=== PATIENT | male | born 1950 | race Caucasian/White ===

== ENCOUNTER 2017-01-15 17:17 | Inpatient (IN) | payer OTHER ==
--- NOTE | 2017-01-15 17:33 | CPEKG ---
Heart Rate: 131 RR Interval: 458 P-R Interval: 164 QRSD Interval: 74 QT Interval: 280 QTC Interval: 414 P [place]: 84 QRS [place]: 49 T Wave [place]: 47 EKG Severity - OTHERWISE NORMAL ECG - EKG Impression: SINUS TACHYCARDIA Electronically Signed By: Maykel Hoffmann 16-Jan-2017 09:05:13
--- NOTE | 2017-01-15 17:34 | EDPHY ---
H & P Stated Complaint: chest pain/sob/fevers Time Seen by Provider: 01/15/17 17:33 - Personal History Current Tetanus/Diphtheria Vaccine: Unsure - Medical/Surgical History Hx Asthma: No Hx Chronic Respiratory Disease: Yes Hx Diabetes: No Hx Cardiac Disease: Yes Hx Renal Disease: No Hx Cirrhosis: No Hx Alcoholism: Yes Hx HIV/AIDS: No Hx Splenectomy or Spleen Trauma: No Other PMH: CAD, emphysema, surgeries hernia, repaired femur fracture - Social History Smoking Status: Former smoker Constitutional: Initial Vital Signs Temperature (C) 36.8 C 01/15/17 17:21 Heart Rate 133 H 01/15/17 17:21 Respiratory Rate 28 H 01/15/17 17:21 Blood Pressure 177/97 H 01/15/17 17:21 O2 Sat (%) 60 L 01/15/17 17:21 O2 Delivery Mode Nasal Cannula O2 (L/minute) 6 Allergies/Adverse Reactions: No Known Allergies Allergy (Verified 01/15/17 17:20) Home Medications: Medication Instructions Recorded Albuterol [Proventil Inhaler HFA 1 - 2 puffs IH DAILY 02/17/15 (*)] Aspirin [Aspirin 81mg (*)] 81 mg PO DAILY 02/17/15 Herbals/Supplements -Info Only 1 ea PO DAILY 02/17/15 Ipratropium [Atrovent Hfa (*)] 1 puffs IH DAILY 02/17/15 Multivitamins [Multivitamin (*)] 1 each PO DAILY 02/17/15 Nitroglycerin [Nitrostat 0.4 mg 0.4 mg SL PRN PRN 02/17/15 (*)] Simvastatin [Zocor] 20 mg PO DAILY 02/17/15 guaiFENesin [Mucinex 600 MG (*)] 1,200 mg PO BID 02/17/15 Lisinopril [Zestril 10 mg (*)] 10 mg PO DAILY #30 tab 02/18/15 Ticagrelor [Brilinta] 90 mg PO BID #60 tablet 02/18/15 amLODIPine BESYLATE [Norvasc 2.5 2.5 mg PO DAILY #30 tab 02/18/15 mg (*)] Medical Decision Making - Diagnostics Imaging: Imaging Impressions Chest X-Ray 01/15/17 17:40 Impression: Diffuse interstitial pneumonitis. Differential diagnosis includes viral infection (influenza?) versus infection in an immunocompromised process such as pneumocystis. ED Course/Re-evaluation: CHIEF COMPLAINT: HISTORY OF PRESENT ILLNESS: must have 4 elements: Location, Quality, Severity , Duration, Timing, Context, Modifying Factors, Associated Signs and Symptoms REVIEW OF SYSTEMS: A 10 point review of systems was performed and is negative with the exception of the elements mentioned in the history of present illness. PHYSICAL EXAM: HR, BP, O2 Sat, RR. Temp noted General Appearance: Alert, well hydrated, appropriate, and non-toxic appearing. Head: Atraumatic without scalp tenderness or obvious injury Eyes: Pupils equal, round, reactive to light and accommodation, EOMI, no trauma , no injection. Ears: Clear bilaterally, no perforation, normal landmarks Nose: Atraumatic, no rhinorrhea, clear. Throat: There is no erythema or exudates, no lesions, normal tonsils, mucus membranes moist. Neck: Supple, 2+ carotid upstroke, nontender, no lymphadenopathy. Respiratory: No retractions, no distress, no wheezes, and no accessory muscle use. Lungs are clear to auscultation bilaterally. Cardiovascular: Regular rate and rhythm, no murmurs, rubs, or gallops. Bilateral carotid, radial, dorsalis pedis, and posterior tibial pulses intact. Good capillary refill all extremities. Gastrointestinal: Abdomen is soft, nontender, non-distended, no masses, no rebound, no guarding, no peritoneal signs. Musculoskeletal: Normal active ROM of all extremities, atraumatic. Neurological: Alert, appropriate, and interactive. The patient has normal DTRs and non-focal cranial nerves, motor, sensory, and cerebellar exam. Skin: No rashes, good turgor, no nodules on palpation. Past medical history: Past surgical history: Family history: Social history: DIAGNOSTICS/PROCEDURES/CRITICAL CARE TIME: DIFFERENTIAL DIAGNOSIS: MEDICAL DECISION MAKIN-year-old male with a history of emphysema presents - Data Points Laboratory Results: Laboratory Results 01/15/17 17:40 01/15/17 01/15/17 01/15/17 17:40 17:40 17:40 WBC 17.09 10^3/uL H 10^3/uL (3.80-9.50) RBC 3.83 10^6/uL L 10^6/uL (4.40-6.38) Hgb 11.5 g/dL L g/dL (13.7-17.5) Hct 35.3 % L % (40.0-51.0) MCV 92.2 fL fL (81.5-99.8) MCH 30.0 pg pg (27.9-34.1) MCHC 32.6 g/dL g/dL (32.4-36.7) RDW 13.6 % % (11.5-15.2) Plt Count 417 10^3/uL H 10^3/uL (150-400) MPV 9.7 fL fL (8.7-11.7) Neut % (Auto) 92.8 % H % (39.3-74.2) Lymph % (Auto) 1.5 % L % (15.0-45.0) [place] % (Auto) 4.7 % % (4.5-13.0) Eos % (Auto) 0.1 % L % (0.6-7.6) Baso % (Auto) 0.2 % L % (0.3-1.7) Nucleat RBC Rel Count 0.0 % % (0.0-0.2) Absolute Neuts (auto) 15.87 10^3/uL H 10^3/uL (1.70-6.50) Absolute Lymphs (auto) 0.25 10^3/uL L 10^3/uL (1.00-3.00) Absolute Monos (auto) 0.80 10^3/uL 10^3/uL (0.30-0.80) Absolute Eos (auto) 0.02 10^3/uL L 10^3/uL (0.03-0.40) Absolute Basos (auto) 0.03 10^3/uL 10^3/uL (0.02-0.10) Absolute Nucleated RBC 0.00 10^3/uL 10^3/uL (0-0.01) Immature Gran % 0.7 % % (0.0-1.1) Immature Gran # 0.12 10^3/uL H 10^3/uL (0.00-0.10) PT 15.3 SEC H SEC (12.0-15.0) INR 1.21 H (0.83-1.16) APTT 38.0 SEC SEC (23.0-38.0) VBG Lactic Acid Sodium Pending Potassium Pending Chloride Pending Carbon Dioxide Pending Anion Gap Pending BUN Pending Creatinine Pending Estimated GFR Pending Glucose Pending Calcium Pending Total Bilirubin Pending Troponin I Pending NT-Pro-B Natriuret Pep Pending 01/15/17 17:40 WBC RBC Hgb Hct MCV MCH MCHC RDW Plt Count MPV Neut % (Auto) Lymph % (Auto) [place] % (Auto) Eos % (Auto) Baso % (Auto) Nucleat RBC Rel Count Absolute Neuts (auto) Absolute Lymphs (auto) Absolute Monos (auto) Absolute Eos (auto) Absolute Basos (auto) Absolute Nucleated RBC Immature Gran % Immature Gran # PT INR APTT VBG Lactic Acid 2.5 mmol/L H mmol/L (0.7-2.1) Sodium Potassium Chloride Carbon Dioxide Anion Gap BUN Creatinine Estimated GFR Glucose Calcium Total Bilirubin Troponin I NT-Pro-B Natriuret Pep Departure - Departure Referrals: Reece Macias DO [Primary Care Provider] - As per Instructions
--- NOTE | 2017-01-15 17:37 | EDPHY ---
H & P Stated Complaint: chest pain/sob/fevers - Personal History Current Tetanus/Diphtheria Vaccine: Unsure - Medical/Surgical History Hx Asthma: No Hx Chronic Respiratory Disease: Yes Hx Diabetes: No Hx Cardiac Disease: Yes Hx Renal Disease: No Hx Cirrhosis: No Hx Alcoholism: Yes Hx HIV/AIDS: No Hx Splenectomy or Spleen Trauma: No Other PMH: CAD, emphysema, surgeries hernia, repaired femur fracture - Social History Smoking Status: Former smoker Constitutional: Initial Vital Signs Temperature (C) 36.8 C 01/15/17 17:21 Heart Rate 133 H 01/15/17 17:21 Respiratory Rate 28 H 01/15/17 17:21 Blood Pressure 177/97 H 01/15/17 17:21 O2 Sat (%) 60 L 01/15/17 17:21 O2 Delivery Mode Nasal Cannula O2 (L/minute) 6 Allergies/Adverse Reactions: No Known Allergies Allergy (Verified 01/15/17 17:20) Home Medications: Medication Instructions Recorded Albuterol [Proventil Inhaler HFA 1 - 2 puffs IH DAILY 02/17/15 (*)] Aspirin [Aspirin 81mg (*)] 81 mg PO DAILY 02/17/15 Herbals/Supplements -Info Only 1 ea PO DAILY 02/17/15 Ipratropium [Atrovent Hfa (*)] 1 puffs IH DAILY 02/17/15 Multivitamins [Multivitamin (*)] 1 each PO DAILY 02/17/15 Nitroglycerin [Nitrostat 0.4 mg 0.4 mg SL PRN PRN 02/17/15 (*)] Simvastatin [Zocor] 20 mg PO DAILY 02/17/15 guaiFENesin [Mucinex 600 MG (*)] 1,200 mg PO BID 02/17/15 Lisinopril [Zestril 10 mg (*)] 10 mg PO DAILY #30 tab 02/18/15 Ticagrelor [Brilinta] 90 mg PO BID #60 tablet 02/18/15 amLODIPine BESYLATE [Norvasc 2.5 2.5 mg PO DAILY #30 tab 02/18/15 mg (*)] Medical Decision Making - Diagnostics Imaging: Imaging Impressions Chest X-Ray 01/15/17 17:40 Impression: Diffuse interstitial pneumonitis. Differential diagnosis includes viral infection (influenza?) versus infection in an immunocompromised process such as pneumocystis. ED Course/Re-evaluation: CHIEF COMPLAINT: Shortness of breath, chest pain. HISTORY OF PRESENT ILLNESS: The patient is a 66-year-old male with a history of emphysema who presents with one week of worsening shortness of breath, fever , and chills. Today his shortness of breath worsened, he developed chest pain, and he experienced multiple bouts of diarrhea. He is usually on 2L of oxygen at home but is on 6L today to remain at normal hypoxic levels. He took 3 rounds of nitroglycerin to no effect. He denies recent antibiotic use, vomiting, or other complaints. REVIEW OF SYSTEMS: A 10 point review of systems was performed and is negative with the exception of the elements mentioned in the history of present illness. PHYSICAL EXAM: HR, BP, O2 Sat, RR. Temp noted General Appearance: Alert, well hydrated, appropriate, and non-toxic appearing. Head: Atraumatic without scalp tenderness or obvious injury Eyes: Pupils equal, round, reactive to light and accommodation, EOMI, no trauma , no injection. Ears: Clear bilaterally, no perforation, normal landmarks Nose: Atraumatic, no rhinorrhea, clear. Throat: There is no erythema or exudates, no lesions, normal tonsils, mucus membranes moist. Neck: Supple, 2+ carotid upstroke, nontender, no lymphadenopathy. Respiratory: No retractions, no wheezes, and no accessory muscle use. Increased respiratory rate. Cyanotic. Cardiovascular: Regular rate and rhythm, no murmurs, rubs, or gallops. Bilateral carotid, radial, dorsalis pedis, and posterior tibial pulses intact. Good capillary refill all extremities. Gastrointestinal: Abdomen is soft, nontender, non-distended, no masses, no rebound, no guarding, no peritoneal signs. Musculoskeletal: Normal active ROM of all extremities, atraumatic. Neurological: Alert, appropriate, and interactive. The patient has normal DTRs and non-focal cranial nerves, motor, sensory, and cerebellar exam. Skin: No rashes, good turgor, no nodules on palpation. Past medical history: Emphysema, CAD. Past surgical history: Femur repair, hernia repair. Family history: Unknown. Social history: . DIAGNOSTICS/PROCEDURES/CRITICAL CARE TIME: The 12 lead EKG was interpreted by myself. See hard copy and/or "tracemaster" electronic copy for interpretation. Sinus tachycardia rate 131. No ischemic changes. Study: PA and Lateral Chest X-ray Indication: Chest pain, shortness of breath. Results: I viewed the images myself on the PACS system. My interpretation of the images is: diffuse pneumonitis. See "imaging" section for radiologist report. DIFFERENTIAL DIAGNOSIS: The differential diagnosis for the patient's shortness of breath and hypoxemia included but was not limited to pneumonia, myocardial infarction, acute mountain sickness, high altitude pulmonary edema, congestive heart failure, and pulmonary embolus. MEDICAL DECISION MAKIN-year-old male with a history of emphysema presents with shortness of breath, chest pain, and diarrhea. He reports worsening shortness of breath over the past week and developed severe diarrhea and chest pain today. On arrival his heart rate is 131 and he requires 6L of oxygen to keep his oxygen saturation normal. He is not febrile. He is not hypotensive. He is usually on 2L. An IV will be established. Labs and blood cultures have been ordered. Chest x-ray and EKG obtained. EKG shows sinus tachycardia with no ischemic changes. WBC elevated at 17.05. Lactic acid elevated at 2.5. X-ray as interpreted by me shows diffuse pneumonitis. The patient meets severe sepsis criteria because he is tachycardic, has a high respiratory rate, WBC elevated, and lactic acid is greater than 2. He does not meet criteria for septic shock. Additional lactic acid lab will be drawn. The patient will be given 2gm IV Cefepime and 750mg IV Levaquin. 125mg IV Solu-Medrol administered. Hospitalist paged. [phone]: Consulted with Dr. Hunter, hospitalist. She accepts admission. - Data Points Laboratory Results: Laboratory Results 01/15/17 17:40 01/15/17 17:40 01/15/17 01/15/17 01/15/17 17:40 17:40 17:40 WBC 17.09 10^3/uL H 10^3/uL (3.80-9.50) RBC 3.83 10^6/uL L 10^6/uL (4.40-6.38) Hgb 11.5 g/dL L g/dL (13.7-17.5) Hct 35.3 % L % (40.0-51.0) MCV 92.2 fL fL (81.5-99.8) MCH 30.0 pg pg (27.9-34.1) MCHC 32.6 g/dL g/dL (32.4-36.7) RDW 13.6 % % (11.5-15.2) Plt Count 417 10^3/uL H 10^3/uL (150-400) MPV 9.7 fL fL (8.7-11.7) Neut % (Auto) 92.8 % H % (39.3-74.2) Lymph % (Auto) 1.5 % L % (15.0-45.0) [place] % (Auto) 4.7 % % (4.5-13.0) Eos % (Auto) 0.1 % L % (0.6-7.6) Baso % (Auto) 0.2 % L % (0.3-1.7) Nucleat RBC Rel Count 0.0 % % (0.0-0.2) Absolute Neuts (auto) 15.87 10^3/uL H 10^3/uL (1.70-6.50) Absolute Lymphs (auto) 0.25 10^3/uL L 10^3/uL (1.00-3.00) Absolute Monos (auto) 0.80 10^3/uL 10^3/uL (0.30-0.80) Absolute Eos (auto) 0.02 10^3/uL L 10^3/uL (0.03-0.40) Absolute Basos (auto) 0.03 10^3/uL 10^3/uL (0.02-0.10) Absolute Nucleated RBC 0.00 10^3/uL 10^3/uL (0-0.01) Immature Gran % 0.7 % % (0.0-1.1) Immature Gran # 0.12 10^3/uL H 10^3/uL (0.00-0.10) PT 15.3 SEC H SEC (12.0-15.0) INR 1.21 H (0.83-1.16) APTT 38.0 SEC SEC (23.0-38.0) VBG Lactic Acid Sodium 132 mEq/L L mEq/L (134-144) Potassium 4.4 mEq/L mEq/L (3.5-5.2) Chloride 92 mEq/L L mEq/L (97-110) Carbon Dioxide 24 mEq/l mEq/l (22-31) Anion Gap 16 mEq/L mEq/L (8-16) BUN 37 mg/dL H mg/dL (7-23) Creatinine 1.3 mg/dL mg/dL (0.7-1.3) Estimated GFR 55 Glucose 186 mg/dL H mg/dL (70-100) Calcium 9.2 mg/dL mg/dL (8.5-10.4) Total Bilirubin 0.9 mg/dL mg/dL (0.1-1.4) Troponin I Pending NT-Pro-B Natriuret Pep Pending 01/15/17 17:40 WBC RBC Hgb Hct MCV MCH MCHC RDW Plt Count MPV Neut % (Auto) Lymph % (Auto) [place] % (Auto) Eos % (Auto) Baso % (Auto) Nucleat RBC Rel Count Absolute Neuts (auto) Absolute Lymphs (auto) Absolute Monos (auto) Absolute Eos (auto) Absolute Basos (auto) Absolute Nucleated RBC Immature Gran % Immature Gran # PT INR APTT VBG Lactic Acid 2.5 mmol/L H mmol/L (0.7-2.1) Sodium Potassium Chloride Carbon Dioxide Anion Gap BUN Creatinine Estimated GFR Glucose Calcium Total Bilirubin Troponin I NT-Pro-B Natriuret Pep Departure - Departure Disposition: [facility] Inpatient Acute Clinical Impression: Pneumonitis, Severe sepsis, Hypoxemia Condition: Fair Referrals: Reece Macias DO [Primary Care Provider] - As per Instructions Report Scribed for: Sheng Wilks Report Scribed by: John Garcia Date of Report: 01/15/17 Time of Report: 18:23
[2017-01-15 18:01] LABS: % IMMATURE GRANULYOCYTES 0.7 % (0.0-1.1); ABSOLUTE IMMATURE GRANULOCYTES 0.12 10^3/uL (0.00-0.10); ADD DIFF? NO; ADD MORPH? NO; ADD SCAN? NO; ATYPICAL LYMPHOCYTE FLAG 20 (0-99); FRAGMENT RBC FLAG 0 (0-99); HEMATOCRIT 35.3 % (40.0-51.0); HEMOGLOBIN 11.5 g/dL (13.7-17.5); LEFT SHIFT FLG 0 (0-99); LIPEMIA HEMOLYSIS FLAG 80 (0-99); MEAN CELL HEMOGLOBIN CONCENTR. 32.6 g/dL (32.4-36.7); MEAN CELL VOLUME 92.2 fL (81.5-99.8); MEAN PLATELET VOLUME 9.7 fL (8.7-11.7); PLATELET CLUMPS FLAG 0 (0-99); PLATELET COUNT 417 10^3/uL (150-400); RED BLOOD CELL COUNT 3.83 10^6/uL (4.40-6.38); RED CELL DISTRIBUTION WIDTH 13.6 % (11.5-15.2)
[2017-01-15 18:13] LABS: INR 1.21 (0.83-1.16); PROTIME(PATIENT) 15.3 SEC (12.0-15.0)
[2017-01-15] MEDS ORDERED: CEFEPIME HCL 2 GM in D5W 100 ML IV ONE (18:20)
[2017-01-15] MEDS ORDERED: NS 1,900 ML IV ONE (18:20)
[2017-01-15 18:21] LABS: ANION GAP 16 mEq/L (8-16); BILIRUBIN,TOTAL 0.9 mg/dL (0.1-1.4); CALCIUM 9.2 mg/dL (8.5-10.4); CARBON DIOXIDE 24 mEq/l (22-31); CHLORIDE 92 mEq/L (97-110); CREATININE 1.3 mg/dL (0.7-1.3); GLOMERULAR FILTRATION RATE 55; GLUCOSE 186 mg/dL (70-100); POTASSIUM 4.4 mEq/L (3.5-5.2); SODIUM 132 mEq/L (134-144)
[2017-01-15] MEDS ORDERED: methylPREDNISolone SOD SUCC 125 MG/2 ML VIAL IVP ONE (18:24)
[2017-01-15 18:31] LABS: TROPONIN I < 0.012 ng/mL (0-0.034)
[2017-01-15 18:56] LABS: LACGHOST ORDER
[2017-01-15] MEDS ORDERED: ONDANSETRON DISINTEGRATING 4 MG TAB PO PRN (19:50)
[2017-01-15] MEDS ORDERED: ONDANSETRON 4 MG/2 ML VIAL IVP PRN (19:50)
[2017-01-15] MEDS ORDERED: ACETAMINOPHEN 325 MG TAB PO PRN (19:50)
[2017-01-15 20:11] LABS: ALBUMIN 3.5 g/dL (3.5-5.0); BILIRUBIN,TOTAL 0.9 mg/dL (0.1-1.4); BILIRUBIN-CONJUGATED 0.6 mg/dL (0.0-0.5); BILIRUBIN-UNCONJUGATED 0.3 mg/dL (0.0-1.1); MAGNESIUM 2.3 mg/dL (1.6-2.3); TOTAL PROTEIN 6.7 g/dL (6.3-8.2)
[2017-01-15] MEDS ORDERED: ALBUTEROL 60 PUFFS/8 GM MDI IH PRN (21:06)
[2017-01-15] MEDS ORDERED: LORazepam 2 MG/ML INJ IVP PRN (21:13)
[2017-01-15] MEDS ORDERED: LORazepam 1 MG TAB PO PRN (21:13)
[2017-01-15] MEDS ORDERED: NS 1,000 ML IV SCH (21:15)
--- NOTE | 2017-01-15 21:44 | GHP ---
[f rep st] HISTORY AND PHYSICAL DATE OF ADMISSION: 01/15/2017 CHIEF COMPLAINT: Fatigue, cough. HISTORY OF PRESENT ILLNESS: Patient is a 66-year-old male with history of alcohol abuse, CAD presenting with fevers, chills and sweats for the last few days. He reports a mild dry cough. He just states he "feels bad." Has had mild increased shortness of breath. No myalgias or headaches. Has had nausea, vomiting and diarrhea the last couple days. No blood in emesis or stool. No abdominal pain, increased fatigue and decreased p.o. intake. Denies dysuria. REVIEW OF SYSTEMS: I completed a 10-point review of systems, negative except as noted in HPI. PAST MEDICAL HISTORY: 1. CAD with history of stent to the RCA. 2. Hypertension. 3. Hyperlipidemia. 4. Chronic hypoxemic respiratory failure on 2 L. 5. CKD, baseline creatinine 1.5. PAST SURGICAL HISTORY: 1. Bilateral inguinal hernia surgeries. 2. Repair of femur fracture. SOCIAL HISTORY: Lives in [facility]. Quit tobacco in 2005 but smoked a pack a day for 30 years. Alcohol: States he drinks a case of beer every 6 weeks, last drink was last week. No illicits. FAMILY HISTORY: Hypertension, [place] dad and brother. MEDICATIONS: Vitamin B12, vitamin D3, herbal supplements, atorvastatin 80 mg daily, aspirin 81 mg daily, albuterol as needed, Norvasc 2.5 daily, Brilinta 90 mg b.i.d., multivitamin, ipratropium. PHYSICAL EXAM: VITAL SIGNS: Temperature 37, blood pressure 114/62, heart rate 120s, respiration 28, 95% on 3 L. GENERAL: Disheveled in no acute distress. HEENT: PERRLA. EOMI. Poor mcc. Dry mucous membranes. CV: Tachy but regular. No murmurs, gallops, rubs. LUNGS: Clear to auscultation bilaterally. ABDOMEN: Soft, nontender, nondistended. Positive bowel sounds. : No suprapubic tenderness. MUSCULOSKELETAL: 5/5 upper and lower extremity strength. NEURO: 2 through 12 intact. PSYCH: Alert and oriented x3. Tangential when asking questions. LABS: Sodium 132, potassium 4.4, chloride 92, carbon dioxide 24, BUN 37, creatinine 1.3, glucose 186, conjugated bilirubin 0.6, phos 2.3. BNP is 484. Troponin less than 0.012. Lactate 2.5, repeat is 1.7. INR is 1.2. PT is 15. WBC 17, hemoglobin 11, hematocrit 35, platelets of 417. Chest x-ray personally reviewed by me. Diffuse interstitial pneumonitis. No overt opacity. EKG personally reviewed by me. EKG sinus tachycardia, probable LVH. ASSESSMENT/PLAN: 1. Leukocytosis: WBC is elevated at 17 with diffuse pneumonitis on chest x- ray. Query aspiration versus viral process such as influenza. Cover for atypical pneumonia with Levquin. Check influenza. Denies other infectious symptoms, afebrile. 2. Coronary artery disease. Continue aspirin, statin and Brilinta. 3. Hyperlipidemia. atorvastatin. 4. Benign hypertension: cont home medications. 5. Acute on chronic hypoxemic respiratory failure: initially requiring 6l oxygen (2L at baseline). No evidence of exacerbation. Query viral infection. Continue with home inhalers. 6. Hypovolemic hyponatremia: due to dehydration. IVFs 7. Lactic acidosis: starvation ketosis vs alcohol. Resolved with IV fluids. 8. Hypophosphatemia: replete 9. Etoh abuse: CIWA 10. Diet: Regular. 11. Deep venous thrombosis prophylaxis. Lovenox. Disposition: Patient warrants observation admission given leukocytosis concern for viral versus a bacterial pneumonia. /[id number]/MODL MTDD
[2017-01-15] MEDS: ATORVASTATIN CALCIUM 40 MG TAB PO SCH (21:55)
[2017-01-16 05:23] LABS: % IMMATURE GRANULYOCYTES 0.6 % (0.0-1.1); ABSOLUTE IMMATURE GRANULOCYTES 0.04 10^3/uL (0.00-0.10); ADD DIFF? NO; ADD MORPH? NO; ADD SCAN? NO; ATYPICAL LYMPHOCYTE FLAG 40 (0-99); FRAGMENT RBC FLAG 0 (0-99); HEMATOCRIT 30.5 % (40.0-51.0); HEMOGLOBIN 10.2 g/dL (13.7-17.5); LEFT SHIFT FLG 0 (0-99); LIPEMIA HEMOLYSIS FLAG 80 (0-99); MEAN CELL HEMOGLOBIN 30.4 pg (27.9-34.1); MEAN CELL HEMOGLOBIN CONCENTR. 33.4 g/dL (32.4-36.7); MEAN CELL VOLUME 90.8 fL (81.5-99.8); MEAN PLATELET VOLUME 9.5 fL (8.7-11.7); PLATELET CLUMPS FLAG 20 (0-99); PLATELET COUNT 230 10^3/uL (150-400); RED BLOOD CELL COUNT 3.36 10^6/uL (4.40-6.38); RED CELL DISTRIBUTION WIDTH 13.4 % (11.5-15.2)
[2017-01-16 05:35] LABS: ANION GAP 7 mEq/L (8-16); CALCIUM 7.8 mg/dL (8.5-10.4); CARBON DIOXIDE 25 mEq/l (22-31); CHLORIDE 106 mEq/L (97-110); GLOMERULAR FILTRATION RATE > 60; GLUCOSE 149 mg/dL (70-100); MAGNESIUM 2.2 mg/dL (1.6-2.3); POTASSIUM 4.5 mEq/L (3.5-5.2); SODIUM 138 mEq/L (134-144)
[2017-01-16 06:19] LABS: % IMMATURE GRANULYOCYTES 0.6 % (0.0-1.1); ABSOLUTE IMMATURE GRANULOCYTES 0.05 10^3/uL (0.00-0.10); ADD DIFF? NO; ADD MORPH? NO; ADD SCAN? NO; ATYPICAL LYMPHOCYTE FLAG 50 (0-99); FRAGMENT RBC FLAG 0 (0-99); HEMATOCRIT 25.9 % (40.0-51.0); HEMOGLOBIN 8.6 g/dL (13.7-17.5); LEFT SHIFT FLG 0 (0-99); LIPEMIA HEMOLYSIS FLAG 80 (0-99); MEAN CELL HEMOGLOBIN 30.4 pg (27.9-34.1); MEAN CELL HEMOGLOBIN CONCENTR. 33.2 g/dL (32.4-36.7); MEAN CELL VOLUME 91.5 fL (81.5-99.8); MEAN PLATELET VOLUME 9.2 fL (8.7-11.7); PLATELET CLUMPS FLAG 0 (0-99); PLATELET COUNT 265 10^3/uL (150-400); RED BLOOD CELL COUNT 2.83 10^6/uL (4.40-6.38); RED CELL DISTRIBUTION WIDTH 13.4 % (11.5-15.2)
[2017-01-16] MEDS ORDERED: Herbals/Supplements -Info Only PO SCH (09:00)
[2017-01-16] MEDS ORDERED: IPRATROPIUM HFA INHALER IH SCH (09:00)
[2017-01-16] MEDS: ENOXAPARIN 40 MG/0.4 ML SYR SC SCH (09:05)
[2017-01-16] MEDS: THIAMINE HCL 100 MG TAB PO SCH (09:06)
[2017-01-16] MEDS: MULTIVITAMINS 1 EACH TAB PO SCH (09:06)
[2017-01-16] MEDS: CYANO/VITAMIN B12 1000 MCG TAB PO SCH (09:06)
[2017-01-16] MEDS: CHOLECALCIFEROL VIT D3 1,000 UNITS TAB PO SCH (09:06)
[2017-01-16] MEDS: TICAGRELOR 90 MG TAB PO SCH ×2 (09:06→19:54)
[2017-01-16] MEDS: ASPIRIN 81 MG CHEWABLE TAB PO SCH (09:06)
[2017-01-16] MEDS: POTASSIUM/SODIUM PHOSPHATE 1 PKT PO SCH ×4 (09:14→21:35)
[2017-01-16] MEDS: IPRATROPIUM/ALBUTEROL 3 ML DEYVIAL IH SCH ×3 (10:46→21:41)
[2017-01-16] MEDS ORDERED: ALBUTEROL 60 PUFFS/8 GM MDI IH PRN ×2 (11:15→11:17)
[2017-01-16] MEDS: amLODIPine BESYLATE 5 MG TAB PO SCH (12:05)
--- NOTE | 2017-01-16 13:26 | GCON ---
[f rep st] CONSULTATION PULMONARY CONSULTATION. DATE OF CONSULTATION: 01/16/2017 REASON FOR CONSULTATION: Shortness of breath, cough. HISTORY: The patient is a 66-year-old gentleman, with severe underlying chronic obstructive pulmona ry disease and emphysema. He has been on oxygen at home over the last year, which apparently he wea rs at 4 L. He is on inhaled therapies and nebulized treatments. Over the last 2 months or so he fe els that has had increasing cough, congestion, and shortness of breath. This has been a gradual pro cess. He has been coughing up a small amount of sputum, clear to yellow. He denies known fevers. Over the last several days his increasing pulmonary symptoms have been accompanied by increased naus ea with some vomiting, as well as diarrhea. He was admitted last night. He was given Solu-Medrol i n the emergency department, as well as intravenous fluids. He has remained afebrile. He is being t reated with antibiotics, including cefepime and Levaquin. He feels better significantly, compared t o when he came in. PAST MEDICAL HISTORY: Other medical problems include coronary artery disease with previous stenting . He has been followed at [facility]. There is a history of systemic hypertension, hyperlipidem ia, and chronic renal insufficiency. PAST SURGICAL HISTORY: Herniorrhaphy, femur fracture. SOCIAL HISTORY: The patient lives alone in [place]. He smoked cigarettes for many years, having quit 11 years ago. He was a pack a day smoker for approximately 40 years. He drinks beer, but not excessively. FAMILY HISTORY: Hypertension and coronary artery disease. REVIEW OF SYSTEMS: He denies chest pain. He denies lower extremity edema or previous thromboemboli c disease. He has seen a biofuels operations manager in the distant past, probably in [facility]. His primary care physician is in [place]. He was last seen there in November for increasing respiratory symp toms, and placed on doxycycline and prednisone at that time, with some improvement. He was placed o n oxygen 1 year ago. He uses DuoNeb at home, generally two times a day. He has Atrovent, which he is not currently using, and albuterol which he uses occasionally. He has Advair, but does not keep this up to date secondary to its unaffordable cost for him. He has been on other inhalers in the pa st including Spiriva, which were expensive for him, and did not seem to make much of a difference. PHYSICAL EXAMINATION: GENERAL: Reveals a pleasant gentleman who is somewhat dyspneic at rest. He has mild use of accessary muscles. Oxygen is in place at 3 L. VITAL SIGNS: Blood pressure is appr oximately 120/65, heart rate 95 with sinus rhythm on the monitor, respiratory rate is 22. He is afe brile. NECK/HEENT: Unremarkable for lymphadenopathy or thyromegaly. There is no jugular venous di stention. CHEST: Reveals decreased breath sounds bilaterally with rales on the right side, not the left. Expiratory phase is prolonged. There are scattered expiratory wheezes. With cough there is central congestion, without shu rhonchi. HEART: Tones are distant, the rhythm is regular. P2 a ppears to be increased. There is no gallop. There is a soft systolic murmur. ABDOMEN: Soft and n ontender. Bowel sounds are present. EXTREMITIES: Unremarkable for edema, cords, or tenderness. N EUROLOGIC: Examination is grossly intact. He moves all extremities equally and reports normal sens ation. Cognition is intact. He is a reasonable historian. DATABASE: Chest x-ray shows hyperinflation with interstitial infiltrates, right more so than the le ft. Emphysema is likely present. The heart size is small. The diaphragms appear somewhat flattene d. Laboratory: White blood cell count is 7800, down from 17,000 on admission yesterday. Hematocrit is 25.9, down from 35. Platelets are normal. PT/PTT was normal on admission. Venous lactate was 2.5 on admission, with a repeat of 1.7 after fluids. Basic metabolic panel is remarkable for a mildly elevated BUN at 32, down from 37. Creatinine this morning is 1.0, down from 1.3. Sodium is 138, wi th a potassium of 4.5. CO2 is 25. Glucose is elevated at 149, magnesium and phosphorus are within normal limits. Liver function studies, troponin and BNP were all within normal limits on admission. DFA for influenza was negative. ASSESSMENT: 1. Acute respiratory failure secondary to chronic obstructive pulmonary disease exacerbation, and a typical pneumonia. 2. Chronic obstructive pulmonary disease exacerbation. The patient has what appears to be severe u nderlying chronic obstructive pulmonary disease and emphysema. He is on chronic oxygen at home, and has been on steroids with exacerbations previously. He does use inhaled therapies, but has some di fficulty with these as described above. Once better, nebulized treatments as an outpatient probably will be best. Inhaled steroids can be reevaluated as an outpatient. For now, DuoNeb will be added to his regimen and steroids will be continued. 3. Atypical pulmonary infiltrates, consistent with possible pneumonia versus pneumonitis. The giorgio ent did vomit, but he denies obvious aspiration. An atypical infection secondary to viral organisms , possibly mycoplasma, etceteras, is possible. Serologies will be obtained. Antibiotics will be co ntinued. 4. History of coronary artery disease, without evidence of any acute issues at this time. 5. History of systemic hypertension, hyperlipidemia, etceteras. PLAN AND RECOMMENDATIONS: The patient will be kept in the hospital for now, and treatment will be c ontinued. Please see the recommendations above. DuoNeb will be added to his regimen routinely 4 ti mes daily, and steroids given, initially Solu-Medrol 60 mg q.12 hours. Spirometry will be obtained as he improves. Current antibiotics will be continued. Respiratory viral panel will be obtained, a long with serologies for mycoplasma and urine antigens for Legionella and pneumococcus. Further plans and recommendations will be made based on his progress over the next 12 to 24 hours. /[id number]/MODL
[2017-01-16 14:43] LABS: BASE EXCESS -1.1 mEq/L (-2.5-2.5); BICARBONATE 23 mEq/L (22-26); MEASURED OXYGEN SATURATION 96 % (92-95); PCO2 37 mmHg (34-38); PO2 86 mmHg (65-75); TCO2 24 mEq/L (23-27)
--- NOTE | 2017-01-16 16:07 | HOSPPROG ---
Hospitalist Progress Note Assessment/Plan: * Acute on chronic respiratory failure - improved -6L - now back to 2L baseline * Pneumonia - atypical -levaquin * COPD exacerbation -steroids, nebs * CAD/stent RCA -Brilinta Objective: Vital Signs Temp Pulse Resp BP Pulse Ox 36.6 C 94 20 92/72 L 94 01/16/17 12:00 01/16/17 15:40 01/16/17 15:40 01/16/17 15:40 01/16/17 15:40 Laboratory Results 01/16/17 06:10 01/16/17 05:15 01/15/17 01/16/17 01/17/17 05:59 05:59 05:59 Intake Total 2843 Output Total 400 525 Balance 2443 -525 PT 15.3 SEC (12.0-15.0) H 01/15/17 17:40 INR 1.21 (0.83-1.16) H 01/15/17 17:40 d/w Dr. Sam Foote - suspects atypical pulmonary infection CXR viewed, my personal interpretation is - bilateral diffuse infiltrates - Physical Exam Constitutional: no apparent distress, appears nourished, not in pain Cardiovascular: regular rate and rhythym, no murmur, rub, or gallop Respiratory: no respiratory distress, no rales or rhonchi, clear to auscultation Gastrointestinal: normoactive bowel sounds, soft, non-tender abdomen, no palpable masses Skin: no rashes or abrasions, no fluctuance, no induration Neurologic: AAOx3, sensation intact bilaterally Psychiatric: interacting appropriately, not anxious, not encephalopathic, thought process linear ICD10 Worksheet Patient Problems: Problems Problem Status Onset Hypoxemia Acute Pneumonitis Acute Severe sepsis Acute
[2017-01-16] MEDS: methylPREDNISolone SOD SUCC 125 MG/2 ML VIAL IVP SCH (19:54)
[2017-01-16] MEDS: ATORVASTATIN CALCIUM 40 MG TAB PO SCH (19:54)
[2017-01-17 05:16] LABS: % IMMATURE GRANULYOCYTES 0.9 % (0.0-1.1); ABSOLUTE IMMATURE GRANULOCYTES 0.14 10^3/uL (0.00-0.10); ADD DIFF? NO; ADD MORPH? NO; ADD SCAN? NO; ATYPICAL LYMPHOCYTE FLAG 40 (0-99); FRAGMENT RBC FLAG 0 (0-99); HEMATOCRIT 28.2 % (40.0-51.0); HEMOGLOBIN 9.1 g/dL (13.7-17.5); LEFT SHIFT FLG 10 (0-99); LIPEMIA HEMOLYSIS FLAG 80 (0-99); MEAN CELL HEMOGLOBIN 29.5 pg (27.9-34.1); MEAN CELL HEMOGLOBIN CONCENTR. 32.3 g/dL (32.4-36.7); MEAN CELL VOLUME 91.6 fL (81.5-99.8); MEAN PLATELET VOLUME 9.6 fL (8.7-11.7); PLATELET CLUMPS FLAG 10 (0-99); PLATELET COUNT 343 10^3/uL (150-400); RED BLOOD CELL COUNT 3.08 10^6/uL (4.40-6.38); RED CELL DISTRIBUTION WIDTH 13.3 % (11.5-15.2)
[2017-01-17 05:27] LABS: ANION GAP 10 mEq/L (8-16); CALCIUM 8.6 mg/dL (8.5-10.4); CARBON DIOXIDE 23 mEq/l (22-31); CHLORIDE 107 mEq/L (97-110); CREATININE 0.9 mg/dL (0.7-1.3); GLOMERULAR FILTRATION RATE > 60; GLUCOSE 154 mg/dL (70-100); MAGNESIUM 1.9 mg/dL (1.6-2.3); POTASSIUM 4.2 mEq/L (3.5-5.2); SODIUM 140 mEq/L (134-144)
[2017-01-17] MEDS: IPRATROPIUM/ALBUTEROL 3 ML DEYVIAL IH SCH ×4 (06:12→20:06)
[2017-01-17] MEDS: methylPREDNISolone SOD SUCC 125 MG/2 ML VIAL IVP SCH ×2 (09:14→20:49)
[2017-01-17] MEDS: THIAMINE HCL 100 MG TAB PO SCH (09:15)
[2017-01-17] MEDS: POTASSIUM/SODIUM PHOSPHATE 1 PKT PO SCH ×4 (09:15→21:29)
[2017-01-17] MEDS: ASPIRIN 81 MG CHEWABLE TAB PO SCH (09:15)
[2017-01-17] MEDS: CYANO/VITAMIN B12 1000 MCG TAB PO SCH (09:15)
[2017-01-17] MEDS: MULTIVITAMINS 1 EACH TAB PO SCH (09:15)
[2017-01-17] MEDS: CHOLECALCIFEROL VIT D3 1,000 UNITS TAB PO SCH (09:15)
[2017-01-17] MEDS: ENOXAPARIN 40 MG/0.4 ML SYR SC SCH (09:16)
[2017-01-17] MEDS: amLODIPine BESYLATE 5 MG TAB PO SCH (09:16)
[2017-01-17] MEDS: TICAGRELOR 90 MG TAB PO SCH ×2 (09:16→20:46)
[2017-01-17] MEDS: guaiFENesin 600 MG TAB.ER PO SCH ×2 (09:52→20:46)
--- NOTE | 2017-01-17 12:21 | SOAPPROG ---
SOAP Progress Note Assessment/Plan: Assessment: Severe underlying COPD/emphysema. This is associated with hypoxemia. He is not a CO2 retainer. COPD exacerbation secondary to presumed bronchopneumonia. On antibiotics, bronchodilators, steroids. Atypical pneumonia by x-ray. Alternative diagnoses need to be considered including the development of an interstitial process, lymphangitic spread of carcinoma, etc. History of coronary artery disease/stents, hypertension, hyperlipidemia. Stable. DVT prophylaxis: Enoxaparin GI prophylaxis: The eating. Plan: Continue treatment with antibiotics, bronchodilator therapy and steroids will be continued. His usual medications will be maintained. He will continue to work with PT/OT. Increase mobilization as tolerated. A noncontrast CT scan of the chest will be obtained questioning alternative diagnoses to atypical pneumonia. Subjective: Doing okay. Feels better, less short of breath compared to admission but about the same as yesterday. Is able to cough, bringing up some white to yellow mucus. Objective: Vital Signs Temp Pulse Resp BP Pulse Ox 37.0 C 80 20 131/60 H 90 L 01/17/17 08:00 01/17/17 08:00 01/17/17 08:00 01/17/17 08:00 01/17/17 08:00 Laboratory Results 01/17/17 04:50 01/17/17 04:50 01/16/17 01/17/17 01/18/17 05:59 05:59 05:59 Intake Total 2514 Output Total 950 Balance 1564 PT 15.3 SEC (12.0-15.0) H 01/15/17 17:40 INR 1.21 (0.83-1.16) H 01/15/17 17:40 Respiratory viral panel negative. Flu negative by PCR, mycoplasma negative. CXR: Hyperinflation remains present with bilateral interstitial infiltrates, right greater than left. No significant change. CT scan of the chest from 2010 reviewed: No significant interstitial disease at that time, only very significant emphysema. Laboratory Tests 01/16/17 01/16/17 01/16/17 13:30 13:35 14:33 pCO2 37 pO2 86 H ABG pH 7.40 Total O2 Concentration 3.0 Influenza A & B (PCR) NEGATIVE FOR FLU Mycoplasma pneumon IgM NEGATIVE Physical Exam - Physical Exam General Appearance: alert, no apparent distress, thin EENT: PERRL/EOMI, other (Nasal cannula at 6 L) Neck: No lymphadenopathy (R), No lymphadenopathy (L) Respiratory: decreased breath sounds, rales (More prominent on the right than the left), wheezing (Few wheezes present), prolonged expiration, No rhonchi (No rhonchi, some central congestion with cough) Cardiac/Chest: regular rate, rhythm, other (Distant heart tones. Increased P2, soft systolic murmur. No obvious gallop) Abdomen: normal bowel sounds, non-tender, soft Skin: normal color, warm/dry Lymphatic: no adenopathy Extremities: pedal edema (Trace +) Neuro/Psych: no motor/sensory deficits, No cognition abnormalities ICD10 Worksheet Patient Problems: Problems Problem Status Onset Transitional Care Acute Pneumonitis Acute Severe sepsis Acute Hypoxemia Acute
--- NOTE | 2017-01-17 14:27 | HOSPPROG ---
Hospitalist Progress Note Assessment/Plan: * Acute on chronic respiratory failure - improved -6L - now back to 2L baseline * Pneumonia - atypical -levaquin -d/w Dr. Foote - concern for possible ILD - check CT chest today * COPD exacerbation -steroids, nebs * CAD/stent RCA -Brilinta Subjective: feeling better Objective: Vital Signs Temp Pulse Resp BP Pulse Ox 36.4 C 75 11 L 163/98 H 93 01/17/17 12:40 01/17/17 14:14 01/17/17 14:14 01/17/17 14:14 01/17/17 14:14 Laboratory Results 01/17/17 04:50 01/17/17 04:50 01/16/17 01/17/17 01/18/17 05:59 05:59 05:59 Intake Total 2514 Output Total 950 Balance 1564 PT 15.3 SEC (12.0-15.0) H 01/15/17 17:40 INR 1.21 (0.83-1.16) H 01/15/17 17:40 CXR viewed, my personal interpretation is - interstitial infiltrate unchanged - Physical Exam Constitutional: no apparent distress, appears nourished, not in pain Cardiovascular: regular rate and rhythym, no murmur, rub, or gallop Respiratory: no respiratory distress, no rales or rhonchi, clear to auscultation Gastrointestinal: normoactive bowel sounds, soft, non-tender abdomen, no palpable masses Skin: no rashes or abrasions, no fluctuance, no induration Neurologic: AAOx3, sensation intact bilaterally Psychiatric: interacting appropriately, not anxious, not encephalopathic, thought process linear ICD10 Worksheet Patient Problems: Problems Problem Status Onset Chronic Disease Mgmt/Transitional Care Acute Hypoxemia Acute Pneumonitis Acute Severe sepsis Acute Transitional Care Acute
[2017-01-17] MEDS: ATORVASTATIN CALCIUM 40 MG TAB PO SCH (20:46)
--- NOTE | 2017-01-17 21:21 | CPEKG ---
Heart Rate: 125 RR Interval: 480 P-R Interval: 140 QRSD Interval: 74 QT Interval: 304 QTC Interval: 439 P [place]: 83 QRS [place]: 61 T Wave [place]: 32 EKG Severity - OTHERWISE NORMAL ECG - EKG Impression: SINUS TACHYCARDIA Electronically Signed By: Maykel Hoffmann 18-Jan-2017 21:18:11
[2017-01-17 21:55] LABS: POTASSIUM 3.8 mEq/L (3.5-5.2)
[2017-01-17 22:08] LABS: TROPONIN I < 0.012 ng/mL (0-0.034)
[2017-01-17 22:17] LABS: CREATINE KINASE-MB FRACTION 6.34 ng/mL (0-3.19)
[2017-01-17 22:25] LABS: CK-MB INTERPRETATION POSITIVE (NEGATIVE)
[2017-01-18] MEDS ORDERED: POLYETHYLENE GLYCOL 3350 17 GM PKT PO PRN (00:34)
[2017-01-18] MEDS ORDERED: LACTULOSE 20 GM/30 ML UDCUP PO PRN (00:34)
[2017-01-18] MEDS ORDERED: MAGNESIUM HYDROXIDE 30 ML UDCUP PO PRN (00:34)
[2017-01-18] MEDS ORDERED: BISACODYL 10 MG SUPP PR PRN (00:34)
[2017-01-18 04:27] LABS: % IMMATURE GRANULYOCYTES 0.9 % (0.0-1.1); ADD DIFF? NO; ADD MORPH? NO; ADD SCAN? NO; ATYPICAL LYMPHOCYTE FLAG 40 (0-99); FRAGMENT RBC FLAG 0 (0-99); HEMATOCRIT 27.6 % (40.0-51.0); HEMOGLOBIN 8.9 g/dL (13.7-17.5); LEFT SHIFT FLG 0 (0-99); LIPEMIA HEMOLYSIS FLAG 80 (0-99); MEAN CELL HEMOGLOBIN CONCENTR. 32.2 g/dL (32.4-36.7); MEAN CELL VOLUME 92.9 fL (81.5-99.8); MEAN PLATELET VOLUME 9.7 fL (8.7-11.7); PLATELET CLUMPS FLAG 0 (0-99); PLATELET COUNT 330 10^3/uL (150-400); RED BLOOD CELL COUNT 2.97 10^6/uL (4.40-6.38); RED CELL DISTRIBUTION WIDTH 13.8 % (11.5-15.2)
[2017-01-18 04:34] LABS: MAGNESIUM 1.9 mg/dL (1.6-2.3)
[2017-01-18] MEDS: IPRATROPIUM/ALBUTEROL 3 ML DEYVIAL IH SCH ×4 (06:02→22:40)
[2017-01-18] MEDS ORDERED: SENNOSIDES/DOCUSATE SODIUM TAB PO SCH (09:00)
[2017-01-18] MEDS: guaiFENesin/CODEINE PHOS 10 ML UDCUP PO PRN (09:05)
[2017-01-18] MEDS: MULTIVITAMINS 1 EACH TAB PO SCH (10:57)
[2017-01-18] MEDS: predniSONE 20 MG TAB PO SCH (10:57)
[2017-01-18] MEDS: guaiFENesin 600 MG TAB.ER PO SCH ×2 (10:58→20:23)
[2017-01-18] MEDS: THIAMINE HCL 100 MG TAB PO SCH (10:58)
[2017-01-18] MEDS: amLODIPine BESYLATE 5 MG TAB PO SCH (10:58)
[2017-01-18] MEDS: CHOLECALCIFEROL VIT D3 1,000 UNITS TAB PO SCH (10:58)
[2017-01-18] MEDS: CYANO/VITAMIN B12 1000 MCG TAB PO SCH (10:58)
[2017-01-18] MEDS: ASPIRIN 81 MG CHEWABLE TAB PO SCH (10:59)
[2017-01-18] MEDS: POTASSIUM/SODIUM PHOSPHATE 1 PKT PO SCH ×2 (10:59→14:57)
[2017-01-18] MEDS: TICAGRELOR 90 MG TAB PO SCH ×2 (10:59→20:24)
[2017-01-18] MEDS: ENOXAPARIN 40 MG/0.4 ML SYR SC SCH (11:01)
--- NOTE | 2017-01-18 14:30 | HOSPPROG ---
Hospitalist Progress Note Assessment/Plan: * Acute on chronic respiratory failure - improved -6L - now back to 2L baseline * Pneumonia - atypical -Levaquin -CT chest - possible ILD - await Dr. Foote input * COPD exacerbation -steroids, nebs * CAD/stent RCA -Brilinta Subjective: Feels like congestion is worse, coughing up clear sputum Objective: Vital Signs Temp Pulse Resp BP Pulse Ox 36.6 C 92 16 134/70 H 93 01/18/17 12:39 01/18/17 12:54 01/18/17 12:54 01/18/17 12:39 01/18/17 12:54 Laboratory Results 01/18/17 03:45 01/17/17 21:40 01/17/17 01/18/17 01/19/17 05:59 05:59 05:59 Intake Total 2514 500 240 Output Total 950 200 600 Balance 1564 300 -360 PT 15.3 SEC (12.0-15.0) H 01/15/17 17:40 INR 1.21 (0.83-1.16) H 01/15/17 17:40 CT chest - most likely interstitial PNA, lymphangitic spread unlikely EKG viewed, my personal interpretation is - sinus tachycardia - Physical Exam Constitutional: no apparent distress, appears nourished, not in pain Cardiovascular: regular rate and rhythym, no murmur, rub, or gallop Respiratory: reduced air movement, expiratory wheeze, No respiratory distress, No rhonchi Gastrointestinal: normoactive bowel sounds, soft, non-tender abdomen, no palpable masses Skin: no rashes or abrasions, no fluctuance, no induration Neurologic: AAOx3, sensation intact bilaterally Psychiatric: interacting appropriately, not anxious, not encephalopathic, thought process linear ICD10 Worksheet Patient Problems: Problems Problem Status Onset Chronic Disease Mgmt/Transitional Care Acute Hypoxemia Acute Pneumonitis Acute Severe sepsis Acute Transitional Care Acute
--- NOTE | 2017-01-18 17:05 | SOAPPROG ---
SOAP Progress Note Assessment/Plan: Assessment: Severe underlying COPD/emphysema. This is associated with chronic hypoxemia. He is not a CO2 retainer. Medical regimen on admission may not have been optimal. COPD exacerbation secondary to presumed atypical bronchopneumonia. On antibiotics, bronchodilators, steroids. Atypical pneumonia by x-ray. Alternative diagnoses need to be considered including the development of an interstitial process, lymphangitic spread of carcinoma, etc. CT scan yesterday most suggestive of an acute infectious pneumonitis however these alternative diagnoses are not completely excluded. No further workup will be done here. He will need outpatient follow-up with a repeat CT scan in approximately 3 months. If significant changes persist then bronchoscopy would be needed. History of coronary artery disease/stents, hypertension, hyperlipidemia. Stable. DVT prophylaxis: Enoxaparin GI prophylaxis: eating. Plan: Continued treatment with antibiotics, bronchodilator therapy and steroids will be continued. His usual medications will be maintained. He will continue to work with PT/OT. Increase ambulation as tolerated. Disposition: I anticipate he may be able to go home in the next 1-3 days depending on his progress. He will need home care. I do not believe he will need a SNF at this time. Subjective: Feels better overall. Some increased congestion and mucus today. Not yet back to baseline. Denies pain. Objective: Vital Signs Temp Pulse Resp BP Pulse Ox 36.5 C 94 20 132/69 H 94 01/18/17 15:41 01/18/17 16:40 01/18/17 16:40 01/18/17 15:41 01/18/17 16:40 Laboratory Results 01/18/17 03:45 01/17/17 21:40 01/17/17 01/18/17 01/19/17 05:59 05:59 05:59 Intake Total 2514 500 740 Output Total 950 200 600 Balance 1564 300 140 PT 15.3 SEC (12.0-15.0) H 01/15/17 17:40 INR 1.21 (0.83-1.16) H 01/15/17 17:40 Laboratory Tests 01/16/17 13:50 Urine Legionella Ag Negative Ur Strep pneumoniae Ag Negative Physical Exam - Physical Exam General Appearance: alert, no apparent distress EENT: other (Nasal cannula at 2.5 L) Neck: normal inspection (No JVD), No lymphadenopathy (R), No lymphadenopathy (L) Respiratory: decreased breath sounds, rales (Few rales on left, better), wheezing (Some expiratory wheezes with forced exhalation), prolonged expiration , No rhonchi (Central congestion present with cough) Cardiac/Chest: regular rate, rhythm Abdomen: normal bowel sounds, non-tender, soft Skin: warm/dry, pallor Extremities: pedal edema (Trace +) Neuro/Psych: no motor/sensory deficits, No cognition abnormalities ICD10 Worksheet Patient Problems: Problems Problem Status Onset Chronic Disease Mgmt/Transitional Care Acute Transitional Care Acute Pneumonitis Acute Severe sepsis Acute Hypoxemia Acute
[2017-01-18] MEDS: ATORVASTATIN CALCIUM 40 MG TAB PO SCH (20:24)
[2017-01-19 01:47] LABS: % SATURATION 16 % (20-55); TOTAL IRON BINDING CAPACITY 174 ug/dL (260-490)
[2017-01-19] MEDS: IPRATROPIUM/ALBUTEROL 3 ML DEYVIAL IH SCH ×4 (07:06→20:28)
[2017-01-19] MEDS: guaiFENesin/CODEINE PHOS 10 ML UDCUP PO PRN (09:46)
[2017-01-19] MEDS: amLODIPine BESYLATE 5 MG TAB PO SCH (09:49)
[2017-01-19] MEDS: ASPIRIN 81 MG CHEWABLE TAB PO SCH (09:51)
[2017-01-19] MEDS: TICAGRELOR 90 MG TAB PO SCH ×2 (09:51→20:25)
[2017-01-19] MEDS: CHOLECALCIFEROL VIT D3 1,000 UNITS TAB PO SCH (09:53)
[2017-01-19] MEDS: predniSONE 20 MG TAB PO SCH (09:53)
[2017-01-19] MEDS: CYANO/VITAMIN B12 1000 MCG TAB PO SCH (09:53)
[2017-01-19] MEDS: guaiFENesin 600 MG TAB.ER PO SCH ×2 (09:53→20:25)
[2017-01-19] MEDS: THIAMINE HCL 100 MG TAB PO SCH (09:53)
[2017-01-19] MEDS: ENOXAPARIN 40 MG/0.4 ML SYR SC SCH (09:54)
[2017-01-19] MEDS: MULTIVITAMINS 1 EACH TAB PO SCH (12:22)
--- NOTE | 2017-01-19 14:40 | HOSPPROG ---
Hospitalist Progress Note Assessment/Plan: * Acute on chronic respiratory failure - improved -6L - now back to 2L baseline * Pneumonia - atypical -Levaquin -f/w Dr. Foote as outpatient * COPD exacerbation -steroids, nebs * CAD/stent RCA -Brilinta Subjective: Better today Objective: Vital Signs Temp Pulse Resp BP Pulse Ox 36.3 C 106 H 20 132/56 H 93 01/19/17 12:00 01/19/17 12:00 01/19/17 12:00 01/19/17 12:00 01/19/17 12:00 Microbiology 01/18/17 18:40 - Final Sputum, Expectorated Laboratory Results 01/18/17 03:45 01/17/17 21:40 01/18/17 01/19/17 01/20/17 05:59 05:59 05:59 Intake Total 500 1640 Output Total 200 600 Balance 300 1040 PT 15.3 SEC (12.0-15.0) H 01/15/17 17:40 INR 1.21 (0.83-1.16) H 01/15/17 17:40 - Physical Exam Constitutional: no apparent distress, appears nourished, not in pain Cardiovascular: regular rate and rhythym, no murmur, rub, or gallop Respiratory: no respiratory distress, no rales or rhonchi, clear to auscultation , expiratory wheeze (less) Gastrointestinal: normoactive bowel sounds, soft, non-tender abdomen, no palpable masses Skin: no rashes or abrasions, no fluctuance, no induration Neurologic: AAOx3, sensation intact bilaterally Psychiatric: interacting appropriately, not anxious, not encephalopathic, thought process linear ICD10 Worksheet Patient Problems: Problems Problem Status Onset Chronic Disease Mgmt/Transitional Care Acute Hypoxemia Acute Pneumonitis Acute Severe sepsis Acute Transitional Care Acute
--- NOTE | 2017-01-19 14:59 | SOAPPROG ---
SOAP Progress Note Assessment/Plan: Assessment: Severe underlying COPD/emphysema. This is associated with chronic hypoxemia. He is not a CO2 retainer. Medical regimen on admission may not have been optimal. COPD exacerbation secondary to presumed atypical bronchopneumonia. On antibiotics, bronchodilators, steroids. Improving. Atypical pneumonia by x-ray. Alternative diagnoses need to be considered including the development of an interstitial process, lymphangitic spread of carcinoma, etc. CT scan yesterday most suggestive of an acute infectious pneumonitis, however these alternative diagnoses are not completely excluded. No further workup indicated currently. He will need outpatient follow-up, with a repeat CT scan in approximately 3 months. If significant changes persist then bronchoscopy would be needed. History of coronary artery disease/stents, hypertension, hyperlipidemia. Stable. DVT prophylaxis: Enoxaparin GI prophylaxis: eating. Plan: Continued treatment with antibiotics, bronchodilator therapy and steroids will be continued. His usual medications will be maintained. He will continue to work with PT/OT. Increase ambulation as tolerated. Disposition: I anticipate he may be able to go home in the next 1-2 days depending on his progress. He will need home care. I do not believe he will need a SNF at this time. Follow-up with me in the office next week. I gave him the office number and told him to call tomorrow to make an appointment for that next week. Subjective: Feels better overall, breathing better, not yet back to baseline. Less congested today. Objective: Vital Signs Temp Pulse Resp BP Pulse Ox 36.3 C 106 H 20 132/56 H 93 01/19/17 12:00 01/19/17 12:00 01/19/17 12:00 01/19/17 12:00 01/19/17 12:00 Microbiology 01/18/17 18:40 - Final Sputum, Expectorated Laboratory Results 01/18/17 03:45 01/17/17 21:40 01/18/17 01/19/17 01/20/17 05:59 05:59 05:59 Intake Total 500 1640 Output Total 200 600 Balance 300 1040 PT 15.3 SEC (12.0-15.0) H 01/15/17 17:40 INR 1.21 (0.83-1.16) H 01/15/17 17:40 Laboratory Tests 01/18/17 03:45 Iron 28.0 L TIBC 174 L Iron Saturation 16 L Ferritin 323.0 Physical Exam - Physical Exam General Appearance: alert, no apparent distress, thin EENT: other (Nasal cannula at 4 L) Neck: normal inspection Respiratory: decreased breath sounds, rhonchi (Some central congestion with cough and forced expiration), prolonged expiration, No rales Cardiac/Chest: tachycardia (Sinus tachycardia present, low 100s) Abdomen: normal bowel sounds, non-tender, soft Skin: warm/dry, pallor Extremities: No pedal edema Neuro/Psych: no motor/sensory deficits, No cognition abnormalities ICD10 Worksheet Patient Problems: Problems Problem Status Onset Chronic Disease Mgmt/Transitional Care Acute Transitional Care Acute Pneumonitis Acute Severe sepsis Acute Hypoxemia Acute
[2017-01-19] MEDS: FERROUS SULFATE 325 MG TAB PO SCH (16:40)
[2017-01-19] MEDS: ATORVASTATIN CALCIUM 40 MG TAB PO SCH (20:24)
[2017-01-20] MEDS: IPRATROPIUM/ALBUTEROL 3 ML DEYVIAL IH SCH ×4 (05:29→20:30)
[2017-01-20] MEDS: amLODIPine BESYLATE 5 MG TAB PO SCH (08:41)
--- NOTE | 2017-01-20 08:50 | HOSPPROG ---
Hospitalist Progress Note Assessment/Plan: #Severe emphysema with COPD exacerbation -will DC on a slow taper and FU with Dr. Foote in 1-[address] scan in 3 months #Acute on chronic hypoxemic resp failure: currently on 4L #Atypical PNA: cont LQ for 7 days #Leukocytosis: down to 11 from 15 #CAD: s/p stents. ASA and statin #Benign HTN: cont home meds #Disp: if clinically stable, plan for DC tomorrow # Subjective: coughing less Objective: Vital Signs Temp Pulse Resp BP Pulse Ox 36.2 C 96 16 151/70 H 95 01/20/17 07:13 01/20/17 07:13 01/20/17 07:13 01/20/17 07:13 01/20/17 07:13 Microbiology 01/18/17 18:40 - Final Sputum, Expectorated Laboratory Results 01/18/17 03:45 01/17/17 21:40 01/19/17 01/20/17 01/21/17 05:59 05:59 05:59 Intake Total 1640 2400 Output Total 600 Balance 1040 2400 PT 15.3 SEC (12.0-15.0) H 01/15/17 17:40 INR 1.21 (0.83-1.16) H 01/15/17 17:40 - Physical Exam Constitutional: no apparent distress Eyes: PERRL Ears, Nose, Mouth, Throat: moist mucous membranes Cardiovascular: regular rate and rhythym, no murmur, rub, or gallop Respiratory: no respiratory distress, rhonchi Gastrointestinal: normoactive bowel sounds, soft, non-tender abdomen Genitourinary: no bladder fullness Skin: warm Musculoskeletal: full muscle strength Neurologic: AAOx3 ICD10 Worksheet Patient Problems: Problems Problem Status Onset Chronic Disease Mgmt/Transitional Care Acute Hypoxemia Acute Pneumonitis Acute Severe sepsis Acute Transitional Care Acute
[2017-01-20] MEDS: THIAMINE HCL 100 MG TAB PO SCH (10:38)
[2017-01-20] MEDS: ENOXAPARIN 40 MG/0.4 ML SYR SC SCH (10:38)
[2017-01-20] MEDS: MULTIVITAMINS 1 EACH TAB PO SCH (10:39)
[2017-01-20] MEDS: predniSONE 20 MG TAB PO SCH (10:39)
[2017-01-20] MEDS: FERROUS SULFATE 325 MG TAB PO SCH (10:39)
[2017-01-20] MEDS: ASPIRIN 81 MG CHEWABLE TAB PO SCH (10:40)
[2017-01-20] MEDS: TICAGRELOR 90 MG TAB PO SCH ×2 (10:40→22:13)
[2017-01-20] MEDS: CYANO/VITAMIN B12 1000 MCG TAB PO SCH (10:40)
[2017-01-20] MEDS: guaiFENesin 600 MG TAB.ER PO SCH ×2 (10:40→22:12)
[2017-01-20] MEDS: CHOLECALCIFEROL VIT D3 1,000 UNITS TAB PO SCH (10:40)
--- NOTE | 2017-01-20 12:49 | SOAPPROG ---
SOAP Progress Note Assessment/Plan: Assessment/Plan: * Severe underlying COPD/emphysema. This is associated with chronic hypoxemia. He is not a CO2 retainer. Medical regimen on admission may not have been optimal. * COPD exacerbation secondary to presumed atypical bronchopneumonia. On antibiotics, bronchodilators, steroids. He continues to improve daily -continue current nebulized treatments. -would wean steroids over the next 2 weeks. * Atypical pneumonia by x-ray. Alternative diagnoses need to be considered including the development of an interstitial process, lymphangitic spread of carcinoma, etc. CT scan yesterday most suggestive of an acute infectious pneumonitis, however these alternative diagnoses are not completely excluded. No further workup indicated currently. He will need outpatient follow-up, with a repeat CT scan in approximately 3 months. If significant changes persist then bronchoscopy would be needed. * History of coronary artery disease/stents, hypertension, hyperlipidemia. Stable. * DVT prophylaxis: Enoxaparin * GI prophylaxis: eating. * Disposition-follow up with Dr. Sam Foote in approximately 2 weeks Subjective: Patient looks and feels markedly improved. He is less breathless with exertion. His cough is markedly reduced. He is ambulating without difficulty. Objective: Vital Signs Temp Pulse Resp BP Pulse Ox 36.4 C 103 H 20 141/71 H 94 01/20/17 11:04 01/20/17 11:04 01/20/17 11:04 01/20/17 11:04 01/20/17 11:04 Microbiology 01/18/17 18:40 - Final Sputum, Expectorated Laboratory Results 01/18/17 03:45 01/17/17 21:40 01/19/17 01/20/17 01/21/17 05:59 05:59 05:59 Intake Total 1640 2400 200 Output Total 600 Balance 1040 2400 200 PT 15.3 SEC (12.0-15.0) H 01/15/17 17:40 INR 1.21 (0.83-1.16) H 01/15/17 17:40 Physical Exam - Physical Exam General Appearance: alert, no apparent distress EENT: PERRL/EOMI, normal ENT inspection, pharynx normal, TMs normal Neck: non-tender, full range of motion, supple, normal inspection Respiratory: crackles (Few basilar crackles), prolonged expiration, No respiratory distress, No wheezing Cardiac/Chest: normal peripheral pulses, regular rate, rhythm, systolic murmur Peripheral Pulses: 2+: carotid (R), carotid (L), femoral (R), femoral (L), dorsalis-pedis (R), dorsalis-pedis (L) Abdomen: normal bowel sounds, non-tender, soft Male Genitalia: deferred Rectal: deferred Skin: normal color, warm/dry Extremities: normal range of motion, non-tender, normal inspection, normal capillary refill ICD10 Worksheet Patient Problems: Problems Problem Status Onset Chronic Disease Mgmt/Transitional Care Acute Hypoxemia Acute Pneumonitis Acute Severe sepsis Acute Transitional Care Acute
[2017-01-20] MEDS: ATORVASTATIN CALCIUM 40 MG TAB PO SCH (22:12)
[2017-01-21 04:14] LABS: HEMATOCRIT 30.4 % (40.0-51.0); HEMOGLOBIN 9.7 g/dL (13.7-17.5); MEAN CELL HEMOGLOBIN 29.9 pg (27.9-34.1); MEAN CELL HEMOGLOBIN CONCENTR. 31.9 g/dL (32.4-36.7); MEAN CELL VOLUME 93.8 fL (81.5-99.8); RED BLOOD CELL COUNT 3.24 10^6/uL (4.40-6.38); RED CELL DISTRIBUTION WIDTH 14.3 % (11.5-15.2)
[2017-01-21] MEDS: IPRATROPIUM/ALBUTEROL 3 ML DEYVIAL IH SCH ×2 (06:14→11:01)
[2017-01-21] MEDS: THIAMINE HCL 100 MG TAB PO SCH (10:32)
[2017-01-21] MEDS: ASPIRIN 81 MG CHEWABLE TAB PO SCH (10:32)
[2017-01-21] MEDS: ENOXAPARIN 40 MG/0.4 ML SYR SC SCH (10:32)
[2017-01-21] MEDS: TICAGRELOR 90 MG TAB PO SCH (10:32)
[2017-01-21] MEDS: FERROUS SULFATE 325 MG TAB PO SCH (10:32)
[2017-01-21] MEDS: CYANO/VITAMIN B12 1000 MCG TAB PO SCH (10:33)
[2017-01-21] MEDS: CHOLECALCIFEROL VIT D3 1,000 UNITS TAB PO SCH (10:33)
[2017-01-21] MEDS: amLODIPine BESYLATE 5 MG TAB PO SCH (10:33)
[2017-01-21] MEDS: MULTIVITAMINS 1 EACH TAB PO SCH (10:33)
[2017-01-21] MEDS: predniSONE 20 MG TAB PO SCH (10:33)
[2017-01-21] MEDS: guaiFENesin 600 MG TAB.ER PO SCH (10:34)
[2017-01-21] MEDS: guaiFENesin/CODEINE PHOS 10 ML UDCUP PO PRN (10:51)
--- NOTE | 2017-01-21 10:55 | PDIAF ---
- Diagnosis Code Status: Full Code - Medication Management Discharge Medications: Medications to Continue on Transfer Albuterol [Proventil Inhaler HFA (*)] 1 - 2 puffs IH DAILY PRN 02/17/15 [Last Taken 02/16/15] Aspirin [Aspirin 81mg (*)] 81 mg PO DAILY 02/17/15 [Last Taken 02/17/15] Herbals/Supplements -Info Only 1 ea PO DAILY 02/17/15 [Last Taken Unknown] Ipratropium [Atrovent Hfa (*)] 1 puffs IH DAILY 02/17/15 [Last Taken 02/17/15] Multivitamins [Multivitamin (*)] 1 each PO DAILY 02/17/15 [Last Taken 02/17/15] Ticagrelor [Brilinta] 90 mg PO BID #60 tablet 02/18/15 [Last Taken Unknown] amLODIPine BESYLATE [Norvasc 2.5 mg (*)] 2.5 mg PO DAILY #30 tab 02/18/15 [Last Taken Unknown] Atorvastatin Calcium [Lipitor 80 mg] 80 mg PO HS 01/15/17 [Last Taken Unknown] Cholecalciferol Vit D3 [Vitamin D3 (*)] 1,000 units PO DAILY 01/15/17 [Last Taken Unknown] Cyanocobalamin [Vitamin B12 (*)] 1,000 mcg PO DAILY 01/15/17 [Last Taken Unknown ] Ferrous Sulfate [Ferrous Sulf 325 MG (*)] 325 mg PO DAILY #30 tab 01/20/17 [ Last Taken Unknown] levOFLOXACIN [levAQUIN (*)] 750 mg PO DAILY AT 10AM #1 tab 01/20/17 [Last Taken Unknown] predniSONE 10 mg PO DAILY #20 tab 01/20/17 [Last Taken Unknown] guaiFENesin/DEXTROMETHORPHAN [Robitussin Dm Oral Liquid (*)] 5 ml PO Q4 PRN # 120 ml 01/21/17 [Last Taken Unknown] Discharge Medications: Refer to the Discharge Home Medication list for PRN reason. - Orders Services needed: Home Care, Registered Nurse, Certified [employer] Home Care Face to Face: I certify that this patient was under my care and that I had the required [id number] encounter meeting the encounter requirements on the discharge day. My findings support the fact that the patient is homebound as defined in CMS Chapter 7 Medicare Benefits Manual 30.1.1, The condition of the patient is such that there exists a normal inability to leave home and consequently, leaving home would require a considerable and taxing effort. Diet Recommendation: cardiac -low fat low salt Diet Texture: Regular Texture Diet - Follow Up Care Current Providers and Referrals: Reece Macias DO [Primary Care Provider] - As per Instructions Sam Foote MD [Medical Doctor] - follow up in 2 weeks
--- NOTE | 2017-01-21 10:58 | HOSPPROG ---
Hospitalist Progress Note Assessment/Plan: #Severe emphysema with COPD exacerbation -will DC on a slow taper and FU with Dr. Foote in 1-[address] scan in 3 months #Acute on chronic hypoxemic resp failure: currently on 4L #Atypical PNA: cont LQ for 7 days #Leukocytosis: down to 11 from 15 #CAD: s/p stents. ASA and statin #Benign HTN: cont home meds #Disp: if clinically stable, plan for DC tomorrow # Subjective: cough improved Objective: Vital Signs Temp Pulse Resp BP Pulse Ox 36.4 C 102 H 19 118/71 94 01/21/17 08:00 01/21/17 08:00 01/21/17 08:00 01/21/17 08:00 01/21/17 08:00 Microbiology 01/18/17 18:40 - Final Sputum, Expectorated Sputum Culture - Final Laboratory Results 01/21/17 03:34 01/17/17 21:40 01/20/17 01/21/17 01/22/17 05:59 05:59 05:59 Intake Total 2400 900 Balance 2400 900 PT 15.3 SEC (12.0-15.0) H 01/15/17 17:40 INR 1.21 (0.83-1.16) H 01/15/17 17:40 - Physical Exam Constitutional: no apparent distress Eyes: PERRL Ears, Nose, Mouth, Throat: moist mucous membranes, hearing normal Cardiovascular: regular rate and rhythym Respiratory: rhonchi Gastrointestinal: normoactive bowel sounds Genitourinary: no bladder fullness Skin: warm Musculoskeletal: full muscle strength Neurologic: AAOx3 ICD10 Worksheet Patient Problems: Problems Problem Status Onset Chronic Disease Mgmt/Transitional Care Acute Hypoxemia Acute Pneumonitis Acute Severe sepsis Acute Transitional Care Acute
--- NOTE | 2017-01-21 11:48 | GDS ---
[f rep st] DISCHARGE SUMMARY DISCHARGE DIAGNOSES: 1. Acute on chronic hypoxemic respiratory failure. 2. Emphysema. 3. Chronic obstructive pulmonary disease exacerbation. 4. Leukocytosis. 5. Coronary artery disease. 6. Benign hypertension. HISTORY OF PRESENT ILLNESS: The patient is a 66-year-old male with history of COPD, emphysema, alcohol abuse, CAD, presenting with fevers, chills, and sweats for the last few days. He reported a mild cough and just feeling badly all over. He had nausea, vomiting, and diarrhea. HOSPITAL COURSE BY PROBLEM: 1. Acute on chronic hypoxemic respiratory failure: Secondary to COPD exacerbation due to an atypical pneumonia. Influenza was negative. Patient was treated with DuoNeb, steroids, and Levaquin. Symptoms much improved. He is to resume his home inhalers. Will continue a slow taper of prednisone over the next 2 weeks, and follow up with Dr. Sam Foote in 1-2 weeks. 2. Atypical pneumonia: Complete a total of 7 days of antibiotics. Will be discharged with 1 dose. 3. Emphysema/COPD exacerbation due to atypical pneumonia. Plan as stated above. Continue prednisone taper. Follow up with Dr. Sam Foote. 4. Leukocytosis, resolved. 5. Tobacco abuse. Patient was counseled on cessation. 6. CAD. May resume home medications. DISPOSITION: Patient is stable for discharge. NEW MEDICATIONS: Robitussin, prednisone, and Levaquin. FOLLOWUP: 1. Dr. Sam Foote in 1-2 weeks. 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 /[id number]/MODL MTDD
--- NOTE | 2017-01-21 12:44 | SOAPPROG ---
SOAP Progress Note Assessment/Plan: Assessment/Plan: * Severe underlying COPD/emphysema. This is associated with chronic hypoxemia. He is not a CO2 retainer. Medical regimen on admission may not have been optimal. * COPD exacerbation secondary to presumed atypical bronchopneumonia. On antibiotics, bronchodilators, steroids. He continues to improve daily -would wean steroids over the next 2 weeks. * Atypical pneumonia by x-ray. * History of coronary artery disease/stents, hypertension, hyperlipidemia. Stable. * DVT prophylaxis: Enoxaparin * GI prophylaxis: eating. * Disposition-Home today. Follow up with Dr. Sam Foote in approximately 2 weeks 01/21/17 12:43 Subjective: Looks and feels markedly improved. He is less breathless and has less cough. Objective: Vital Signs Temp Pulse Resp BP Pulse Ox 36.7 C 98 32 H 112/79 84 L 01/21/17 11:46 01/21/17 11:46 01/21/17 11:46 01/21/17 11:46 01/21/17 12:05 Microbiology 01/18/17 18:40 - Final Sputum, Expectorated Sputum Culture - Final Laboratory Results 01/21/17 03:34 01/17/17 21:40 01/20/17 01/21/17 01/22/17 05:59 05:59 05:59 Intake Total 2400 900 Balance 2400 900 PT 15.3 SEC (12.0-15.0) H 01/15/17 17:40 INR 1.21 (0.83-1.16) H 01/15/17 17:40 Physical Exam - Physical Exam General Appearance: WD/WN, alert, no apparent distress EENT: PERRL/EOMI, normal ENT inspection, pharynx normal, TMs normal Neck: non-tender, full range of motion, supple, normal inspection Respiratory: prolonged expiration, No respiratory distress, No wheezing Cardiac/Chest: normal peripheral pulses, regular rate, rhythm Peripheral Pulses: 2+: carotid (R), carotid (L), femoral (R), femoral (L), dorsalis-pedis (R), dorsalis-pedis (L) Abdomen: normal bowel sounds, non-tender, soft Male Genitalia: deferred Rectal: deferred Skin: normal color, warm/dry ICD10 Worksheet Patient Problems: Problems Problem Status Onset Chronic Disease Mgmt/Transitional Care Acute Hypoxemia Acute Pneumonitis Acute Severe sepsis Acute Transitional Care Acute
[2017-01-21 12:49] VITALS: BP 112/79; PULSE 98; RESP 32; TEMP 98; O2SAT 84
== END 2017-01-21 15:56 | disposition home or self-care (01) | DRG 193 ==
LOC: INTOOBSV 18:23 → F2N 20:45 → OBSVTOIN 01-16 12:35 → F2W 01-17 23:50
PROVIDERS: ADMIT Internal Medicine; ATTEND Internal Medicine
DX: J18.9 Pneumonia, unspecified organism (principal); J44.1 Chronic obstructive pulmonary disease with (acute) exacerbation; J44.0 Chronic obstructive pulmonary disease with (acute) lower respiratory infection; J96.21 Acute and chronic respiratory failure with hypoxia; J43.9 Emphysema, unspecified; Z99.81 Dependence on supplemental oxygen; E87.1 Hypo-osmolality and hyponatremia; I25.10 Atherosclerotic heart disease of native coronary artery without angina pectoris; Z95.5 Presence of coronary angioplasty implant and graft; I10 Essential (primary) hypertension; F17.210 Nicotine dependence, cigarettes, uncomplicated; E78.5 Hyperlipidemia, unspecified; Z87.891 Personal history of nicotine dependence
CPT/HCPCS: 86738-90; 87449-90; 96365; 97116-GP; 97161-GP; 97166-GO; 97530-GO; 97535-GO; G0378; G8978-GP-CK; G8979-GP-CI; G8980-GP-CI; G8987-GO-CJ; G8988-GO-CI; G8989-GO-CI; J0692; J1650; J1956

== ENCOUNTER → 2017-12-18 | Outpatient (CLI) | payer OTHER | LOC: CIMAGING 13:15 | PROVIDERS: ATTEND Internal Medicine Pulmonary Disease | DX: J18.9 Pneumonia, unspecified organism (principal) | CPT/HCPCS: 71046-PO ==